=== PATIENT | female | born 1990 | race Asian ===

== ENCOUNTER 2018-12-17 02:31 | Emergency (ER) | payer OTHER ==
--- NOTE | 2018-12-17 04:17 | ED ---
HPI Chest Pain - HPI Summary HPI Summary: This pt is a 28 y/o female presenting to [facility] c/o chest pain and back pain today since 19:00-20:00 on 12/16/18. Pt states her pain began gradually since last night with back pain. She notes she then noticed chest pain. Pt states she had chest pain with inhaling. Denies fever, SOB, nausea, vomiting. Pt denies any PMHx. She only takes vitamins and calcium. - History of Current Complaint Chief Complaint: EDChestWallPain Time Seen by Provider: 12/17/18 04:02 Hx Obtained From: Patient Onset/Duration: Started Hours Ago, Still Present Timing: Lasting Hours Current Severity: Moderate Pain Intensity: 6 Pain Scale Used: 0-10 Numeric Chest Pain Location: Diffuse Chest Pain Radiates: No Character: Dull/Aching - aching Aggravating Factor(s): Deep Breaths Alleviating Factor(s): Nothing Associated Signs and Symptoms: Positive: Chest Pain, Back Pain. Negative: Shortness of Breath, Fever, Chills, Nausea, Vomiting - Allergy/Home Medications Allergies/Adverse Reactions: Allergies Allergy/AdvReac Type Severity Reaction Status Date / Time No Known Allergies Allergy Verified 12/17/18 03:48 PMH/Surg Hx/FS Hx/Imm Hx Endocrine/Hematology History: Denies: Hx Diabetes Cardiovascular History: Denies: Hx Hypertension Infectious Disease History: No Infectious Disease History: Reports: Traveled Outside the in Last 30 Days - [place] - Family History Known Family History: Negative: Cardiac Disease, Hypertension, Diabetes - Social History Alcohol Use: Occasionally Substance Use Type: Reports: None Smoking Status (MU): Never Smoked Tobacco Review of Systems Negative: Fever Positive: Chest Pain Respiratory: Negative Gastrointestinal: Negative Musculoskeletal: Other - POSITIVE: back pain All Other Systems Reviewed And Are Negative: Yes Physical Exam - Summary Physical Exam Summary: VITAL SIGNS: Reviewed. GENERAL: Patient is a well-developed and nourished female who is lying comfortable in the stretcher. Patient is not in any acute respiratory distress. HEAD AND FACE: No signs of trauma. No ecchymosis, hematomas or skull depressions. No sinus tenderness. EYES: PERRLA, EOMI x 2, No injected conjunctiva, no nystagmus. EARS: Hearing grossly intact. Ear canals and tympanic membranes are within normal limits. MOUTH: Oropharynx within normal limits. NECK: Supple, trachea is midline, no adenopathy, no JVD, no carotid bruit, no c- spine tenderness, neck with full ROM. CHEST: Symmetric, no tenderness at palpation LUNGS: Decreased breath sounds bilaterally. CVS: Regular rate and rhythm, S1 and S2 present, no murmurs or gallops appreciated. ABDOMEN: Soft, non-tender. No signs of distention. No rebound no guarding, and no masses palpated. Bowel sounds are normal. EXTREMITIES: FROM in all major joints, no edema, no cyanosis or clubbing. NEURO: Alert and oriented x 3. No acute neurological deficits. Speech is normal and follows commands. SKIN: Dry and warm Triage Information Reviewed: Yes Vital Signs On Initial Exam: Initial Vitals Temp Pulse Resp BP Pulse Ox 99.7 F 84 18 110/71 100 12/17/18 02:38 12/17/18 02:38 12/17/18 02:38 12/17/18 02:38 12/17/18 02:38 Vital Signs Reviewed: Yes Diagnostics - Vital Signs Vital Signs Temp Pulse Resp BP Pulse Ox 12/17/18 03:48 82 118/69 99 12/17/18 03:47 98.9 F 12/17/18 02:38 99.7 F 84 18 110/71 100 - Laboratory Result Diagrams: 12/17/18 04:35 12/17/18 04:35 Lab Statement: Any lab studies that have been ordered have been reviewed, and results considered in the medical decision making process. - Radiology Chest XR Radiology Interpretation Completed By: ED Physician Summary of Radiographic Findings: No acute process. Pending official radiology report. - EKG 04:42 Cardiac Rate: NL - at 71 bpm EKG Rhythm: Sinus Rhythm Summary of EKG Findings: Short MN. Chest Pain Course/Dx - Course Assessment/Plan: Pt is a 28 y/o female presenting to [facility] c/o chest pain and back pain today since 19:00-20:00 on 12/16/18. Pt states her pain began gradually since last night with back pain. She notes she then noticed chest pain. Pt states she had chest pain with inhaling. Denies fever, SOB, nausea, vomiting. Lab work was obtained. D-dimer is less than 200 and troponin is 0. Chest XR is negative for an acute process. In the ED course the pt was given Toradol. She will be discharged home with follow up from her PCP. She was given Rx for motrin and percocet. Pt was instructed to return to the ED for any worsening symptoms. - Diagnoses Provider Diagnoses: Back pain Discharge - Sign-Out/Discharge Documenting (check all that apply): Patient Departure - Discharge home Patient Received Moderate/Deep Sedation with Procedure: No - Discharge Plan Condition: Stable Disposition: HOME Prescriptions: Ibuprofen TAB* [Motrin TAB* 600 MG] 600 mg PO Q6H PRN #30 tab PRN Reason: Pain oxyCODONE/Acetamin 5/325 MG* [Percocet 5/325 TAB*] 1 tab PO Q6H PRN #14 tab MDD 4 PRN Reason: Pain Patient Education Materials: Back Pain (ED) Referrals: [facility] [Outside] Additional Instructions: Please follow up with your primary care provider in 1-2 days. RETURN TO EMERGENCY DEPARTMENT FOR ANY NEW OR WORSENING SYMPTOMS. - Attestation Statements Document Initiated by Scribe: Yes Documenting Scribe: Sharifa Kaplan Provider For Whom Scribe is Documenting (Include Credential): Donald Barry MD Scribe Attestation: Sharifa Phoenix, scribed for Donald Barry MD on 12/17/18 at 0620. Status of Scribe Document: Ready
[2018-12-17] MEDS ORDERED: Ketorolac INJ* 30 MG/ML 1 ML VIAL IV PUSH ONE (04:18)
[2018-12-17] MEDS ORDERED: Ondansetron INJ* 2 MG/ML VIAL IV ONE (04:19)
[2018-12-17] MEDS ORDERED: Morphine 4 MG/ML VIAL (1 ml) 4 MG/ML VIAL IV ONE (04:19)
[2018-12-17 04:41] LABS: ABS Lymphocytes 1.7 10^3/ul (1.0-4.8); ABS Monocytes 0.4 10^3/ul (0-0.8); Eosinophil % 0.3 %; Hematocrit 36 % (35-47); Hemoglobin 11.7 g/dL (12.0-16.0); Lymphocyte % 27.5 %; Mean Corpuscular HGB Conc 33 g/dL (31-36); Mean Corpuscular Hemoglobin 29 pg (27-31); Mean Corpuscular Volume 89 fL (80-97); Mean Platelet Volume 7.4 fL (7.4-10.4); Platelet Count 225 10^3/uL (150-450); Red Blood Count 4.02 10^6 /uL (3.70-4.87); Red Cell Distribution Width 13 % (10-15); White Blood Count 6.1 10^3/uL (3.5-10.8)
[2018-12-17 04:58] LABS: ALT 7 U/L (7-52); AST 16 U/L (13-39); Albumin 4.4 g/dL (3.2-5.2); Albumin/Globulin Ratio 1.4 (1-3); Alkaline Phosphatase 50 U/L (34-104); Anion Gap 7 mmol/L (2-11); Blood Urea Nitrogen 12 mg/dL (6-24); CO2 Carbon Dioxide 25 mmol/L (22-32); Calcium 9.4 mg/dL (8.6-10.3); Chloride 105 mmol/L (101-111); Creatine Kinase 78 U/L (10-223); EGFR African American 179.1 (>60); Globulin 3.2 g/dL (2-4); Glucose 96 mg/dL (70-100); Magnesium 2.2 mg/dL (1.9-2.7); Potassium 3.4 mmol/L (3.5-5.0); Sodium 137 mmol/L (135-145); Total Protein 7.6 g/dL (6.4-8.9)
[2018-12-17 05:05] LABS: HCG Pregnancy < 0.60 mIU/mL
[2018-12-17] MEDS ORDERED: Potassium Chlor TAB* 20 MEQ TAB.ER PO ONE (05:14)
[2018-12-17 05:58] VITALS: BP 113/77
== END 2018-12-17 05:57 | disposition home or self-care (01) ==
LOC: ED 02:31
DX: M54.9 Dorsalgia, unspecified (principal)
CPT/HCPCS: 36415; 71045; 80053; 82550; 83735; 84484; 84702; 85025; 85379; 85610; 93005; 96374; 96375; 99282; A9270-GY; J1885; J2270; J2405